=== PATIENT | female | born 1940 | race Caucasian/White ===

== ENCOUNTER 2016-12-29 12:45 | Day surgery (SDC) | payer MEDICARE ==
--- NOTE | 2016-12-25 13:34 | PCM.PNHBO ---
Subjective Pre Dive HBO Provider: Grace Vidales Treatment Pressure Order (JAZLYN): 2.00 Treatment Length Order Minutes: 90 Air Breaks: None Pre Treatment Exam Date of Pre Treatment Exam: Dec 25, 2016 Exam Time: 09:00 Brief Patient History This is dive # 32 of 40 Right Chest Wall Wound Ear Exam: Ear Drum Pearly Dowell Eye Exam: None Reported Nasal and Throat Exam: None Reported Respiratory Exam: Clear to Auscultation Neuro Exam: None Reported Dive Post Treatment Exam Date of Post Treatment Exam: Dec 25, 2016 Exam Time: 11:05 Ear Exam: Ear Drum Pearly Dowell Eye Exam: None Reported Nasal and Throat Exam: None Reported Neuro Exam: None Reported Lungs: Clear to Auscultation Plan Plan The patient will continue hyperbaric treatments. Will return 2016 for treatment #33 Kenyon Encarnacion MD Dec 25, 2016 13:34
[~2016-12-29] VITALS: Ht 160 cm; Wt 94.4 kg
[2016-12-29] VITALS (9 sets, daily range): BP systolic 114–164; BP diastolic 42–76; PULSE 56–70; RESP 11–16; O2SAT 95–98
[~2016-12-29 12:45] MED LIST: ACET325T51 PO; CARV25TA PO; ESCI10TA52 PO; ESOM40CA41 PO; HYDR12.55 PO; MELO-253 PO; Vancomycin Inj 1,500 MG in 0.9% Sodium Chloride 500 ML IV ONE
[2016-12-29] MEDS ORDERED: MetoCLOpramide 5 mg/mL 2 mL Inj ONE (12:46)
[2016-12-29] MEDS ORDERED: Ondansetron 2 mg/mL 2 mL Inj ONE (12:46)
[2016-12-29] MEDS ORDERED: fentaNYL-PF 50 mCg/mL 2 mL Inj ONE (12:46)
[2016-12-29] MEDS ORDERED: Dexamethasone 4 mg/mL Inj ONE (12:46)
[2016-12-29] MEDS ORDERED: Propofol 10,000 mCg/mL 20 mL Inj ONE (12:46)
[2016-12-29] MEDS ORDERED: Vancomycin 1,000mg/200 mL NS IV ONE (12:52)
[2016-12-29] MEDS: Lactated Ringer's 1,000 ML IV SCH ×2 (13:13→15:28)
[2016-12-29] MEDS ORDERED: Lactated Ringer's 500 ML IV PRN (15:44)
[2016-12-29] MEDS ORDERED: Lactated Ringer's 1,000 ML IV SCH (15:44)
[2016-12-29] MEDS ORDERED: Ondansetron 2 mg/mL 2 mL Inj IVPUSH PRN (15:45)
[2016-12-29] MEDS ORDERED: HYDROmorphone 1 mg/mL Inj IVPUSH PRN (15:45)
[2016-12-29] MEDS ORDERED: EPHEDrine Sulfate 50 mg/mL Inj IVPUSH PRN (15:45)
[2016-12-29] MEDS ORDERED: Labetalol 5 mg/mL 4 mL Inj IV PRN (15:45)
[2016-12-29] MEDS ORDERED: MetoCLOpramide 5 mg/mL 2 mL Inj IVPUSH PRN (15:45)
[2016-12-29] MEDS ORDERED: fentaNYL-PF 50 mCg/mL 2 mL Inj IVPUSH PRN (15:45)
[2016-12-29] MEDS ORDERED: hydrALAZINE 20 mg/mL Inj IVPUSH PRN (15:45)
[2016-12-29] MEDS ORDERED: Phenylephrine 10,000 mCg/mL Inj IVPUSH PRN (15:45)
[2016-12-29] MEDS ORDERED: Atropine 0.4 mg/mL Inj IVPUSH PRN (15:45)
--- NOTE | 2016-12-29 15:47 | PCM.HPANE ---
Patient Data Surgeon Admitting Provider: Attending Provider:Canelo Hopper MD Primary Care Physician:Lesly Alexander Other Provider:Jonathan Cid Anesthesia Reason for Visit Right Chest Wall Wound Ht/WT & BMI Height (Feet): 5 Height (Inches): 3 Weight (Kilograms): 93.300 Body Mass Index 36.00 Allergies Coded Allergies: Penicillins (Verified Allergy, Severe, HIVES, 07/24/16) Sulfa (Sulfonamide Antibiotics) (Verified Allergy, Severe, HIVES, 07/24/16 ) clarithromycin (Verified Allergy, Severe, HIVES, 07/24/16) clindamycin (Verified Allergy, Severe, Angioedema, 09/17/16) Rash Admitted for angioedema after taking the medication latex (Verified Allergy, Severe, rash, hives, 07/24/16) Past Anesthesia History Anesthesia History: Denies:: Anesthesia Reactions, Fam Anesthesia Reaction Diabetes History Hx Diabetes?: No (Hgb A1C 6.0- 09/2016) MRSA MRSA: No Medications Hypertension Medication: Yes Home Meds Incl Beta Brenda: Yes Active Scripts Carvedilol (Coreg)25 Mg Ljitcn62 Mg PO BID #30 TABLET Ref 0 Prov:Brown Millard DO 09/20/16 Reported Medications Escitalopram Oxalate 10 Mg Mieajq12 Mg PO DAILY #90 09/17/16 Acetaminophen 325 Mg Tablet1,300 Mg PO Q8H PRN For Pain Ref 0 06/24/16 Esomeprazole Magnesium (Nexium)40 Mg Capsule.dr40 Mg PO DAILY Ref 0 04/22/16 Meloxicam 15 Mg Gmewpg50 Mg PO DAILY 30 Days Ref 0 04/22/16 Hydrochlorothiazide 12.5 Mg Nwhstl46.5 Mg PO DAILY 30 Days Ref 0 04/22/16 History History of ENT Problems?: Yes HEENT History: Positive for:: Cataracts (bilateral) Sinus Problem (seasonal allergies ) Denies:: Dysphagia Hx of Heart Problems?: Yes Cardiovascular History: Positive for:: Hypertension Thrombophlebitis (past hx left upper extremity) Denies:: Congestive Heart Failure Heart Murmur Irregular Heartbeat Hx of Respiratory Problem?: No Respiratory History: Denies:: Asthma COPD Emphysema Oxygen Administration Pneumonia Tuberculosis Use of C-PAP Machine Hx Neurologic Problems?: No Neurological History: Denies:: CVA Headaches Multiple Sclerosis Parkinson's Disease Seizures Hx of GI Problems?: Yes Gastrointestinal History: Positive for:: Gastroesphageal Reflux Heartburn Denies:: Rectal Bleeding Hx of Problems?: No Genitourinary History: Denies:: Kidney Stones Urinary Tract Infection Female Hx: Positive for:: Problems with Breasts? (hx mastectomy, wound necrosis current admission problem) Denies:: Currently Skin History: Positive for:: History Skin Disorders? (chest wall wound current admission problem) Denies:: Pressure Ulcers Hx Musculoskeletal Problems?: Yes Musculoskeletal History: Positive for:: Joint Replacement (hx rt total knee) Osteoarthritis Hx of Psycho/Social Problems?: Yes Psycho Social History: Positive for:: Hx Depression Hx Surgeries?: Yes (RT TKA,POWERPORT,RT PARTIAL MASTECTOMY X2,HYST,CATARACT) Hx Any Other Health Problems?: Yes Other History: Positive for:: Cancer (right breast) Denies:: Endocrine Disease Hospitalization Thyroid Disease History Blood Transfusions: Denies:: Blood Transfusions Hx Diabetes: No (Hgb A1C 6.0- 09/2016) Hx Alcohol Use: NoHx Substance Use: No Smoking Status: Never Smoker Have You Smoked inLast 12 mo: No Stop/Bang S-Snoring: Do You Snore Loudly: No T-Tired: feel tired, fatigued: No O-Obsered: Observed not breath: No P-Blood Pressure: treated: Yes B- Body Mass Index > 35 kg/m2: No A- Age over 50: Yes N- Neck Large Circumference: No G- Gender Male: No MASHA Total Score: 2 Risk Assessment Category Category 1A: Patient has history of documented sleep apnea, and HAS NOT received any narcotic, sedative or anesthesia administration during this stay. Category 1B: Patient has history of documented sleep apnea, and HAS received any narcotic , sedative or anesthesia administration during this stay Category 2: Patient has SUSPECTED Obstructive Sleep Apnea, and HAS received any narcotic , sedative or anesthesia administration during this stay. Category 3: Patient has SUSPECTED Obstructive Sleep Apnea and HAS NOT received narcotic, sedative or anesthesia administration during this stay. Category 4: Outpatient in Procedural Areas with known sleep apnea or who screen positive for High Risk via the STOP/BANG questionnaire. Exam Exam General Appearance: Alert, Oriented X3, Cooperative, No Acute Distress HEENT/AIRWAY: MP 2, Neck Movement (FROM ), Mouth Opening (3 FBMO) Lungs: Clear to Auscultation, Normal Air Movement Heart: Exam Unremarkable, Regular Rate/Rhythm, No Murmurs/Rubs/Gallops Plan Impression Patient chart reviewed, patient interviewed and anesthestic plan with risks, benefits, and alternatives discussed, and informed consent obtained. NPO Status: 0930 SIPS WITH MEDS, LIGHT BREAKFAST OF YOGURT AT 0800 ASA Physical Status: ASA3 Severe Disease (breast cancer, h/o panctyopenia) Anesthetic Plan: GA Bene/Risks/Altern/Consents: Yes HP Complete Prior to Induction: Yes Ernie Haji MD Dec 29, 2016 13:01
[2016-12-29] MEDS ORDERED: Bupivacaine-MPF 0.5% 30 mL Inj INFILTRATE ONE (15:50)
[2016-12-29] MEDS ORDERED: HYDROcodone-APAP 5-325 mg Tablet PO PRN (16:45)
--- NOTE | 2016-12-29 16:47 | PCM.DISURG ---
Surgical Discharge Instruction Date of Service Dec 29, 2016 Dates of Hospitalization Date of Hospital Admission Providers Admitting Physician: Primary Care Physician: Lesly Alexander Attending Physician: Canelo Hopper MD Discharge Diagnosis Discharge Diagnosis Right chest wall wound, history of right breast cancer Diet Discharge Diet: No restrictions Activity Discharge Activity-General: No lifting >15 pounds for 2 weeks, Other (no lifting right arm above horizontal for 2 weeks) Dressing and Incisional Care Dressing Care: Remove outer dressing after 24 hrs Hygiene: May shower after (24 hours) Follow Up Plan Follow Up Plan With Dr. Hopper in the wound clinic in 3 weeks for suture removal Call your provider for: Fever (over 101.5), Discharge @ incision, pus discharge Canelo Hopper MD Dec 29, 2016 16:47
--- NOTE | 2016-12-29 16:54 | PCM.SURGOP ---
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 She was treated with hyperbaric oxygen, and the wound dimensions significantly improved , but she had a slow healing defect with radiation soft tissue necrosis. After she had developed an adequate bed of granulation tissue, after discussion of risks and benefits, she agreed to proceed with excision of her chest wall wound with layered closure. Findings: There was minimal undermining. The cavity was painted with methylene blue, and the entire cavity was excised. The diameter of the wound following excision was 8.0 x 3.5 x 1.5 cm. Procedure Details After smooth induction of general anesthesia, she was placed in the supine position, and was prepped and draped in wide sterile fashion. A procedural pause was performed according to the SCOAP checklist, and all were found to be in agreement. Using a cotton-tipped applicator, the wound cavity was painted with methylene blue diluted 50% with saline. An elliptical incision was then made through normal skin, oriented transversely. Dissection was carried down with electrocautery through the subcutaneous tissue to the chest wall. The entire wound cavity was excised without encountering the cavity. The excised tissue was oriented with suture, and sent for permanent pathology. The dimensions of the wound following excision were 8.0 x 3.5 x 1.5 cm. In the central base of the wound, there was the defect from prior pectoralis muscle resection. In order to achieve layered closure, skin flaps were raised over the underlying myofascial tissue, undermining the skin for at least 5 cm circumferentially. The pectoralis muscle was then grasped with Allis clamps, and it was elevated off the underlying chest wall, again completing circumferential dissection of at least 5 cm. Once this was achieved, the pectoralis muscle was able to be closed with difficulty with interrupted [id number]-[id number] 0 Vicryl sutures. Complete muscle closure was able to be achieved. The deep subcutaneous tissue was then closed using interrupted 2-0 Vicryl sutures. The skin was closed with interrupted 3-0 nylon vertical mattress sutures. Sterile dressings were applied. At the end of the case all needle and sponge counts were correct 2. The patient was awakened from anesthesia without difficulty, and taken to the recovery room in satisfactory condition, having tolerated the procedure well. Complications There were no periprocedural complications identified. Surgical Specimen Removed: Yes Specimen sent to Pathology: Yes Surgical Specimen description: Right chest wall tissue Anesthetic Plan: GA Grafts, Implants: None Output, Estimated Blood Loss: 30 Blood Administration during pulido: No Drains: None Catheters: None copies to: Lesly Alexander; Salomon Ortega Joshua D MD Dec 29, 2016 16:54
--- NOTE | 2016-12-29 17:11 | PCM.ANEP2 ---
Post Anesthesia Evaluation ASA/CMS Post Anesthesia VS in Patient's Normal Range?: Yes Resp Stable; Airway Patent?: Yes CV Function & Hydration Stable: Yes Mental Status Recovered?: Yes Pain control Satisfactory?: Yes N/V Control Satisfactory?: Yes Ernie Haji MD Dec 29, 2016 17:11
--- NOTE | 2016-12-29 17:11 | PCM.ANEP1 ---
Post Anesthesia Phase 1 PACU Phase 1 Assessment Date of Service: Dec 29, 2016 Vital Signs Vital Signs Date Time Temp Pulse Resp B/P Pulse Ox O2 Delivery O2 Flow Rate FiO2 12/29/16 13:25 36.0 56 16 156/59 95 Room Air Anesthetic Administered: GA Level of Alertness: Awake, talking MIRANDA's with Equal Strength: Yes Pain: No Nausea or Vomiting: No Oxygen Delivery: Simple Mask Lungs: Clear to Auscultation, Normal Air Movement Dermatome Level: Full Sensation Ernie Haji MD Dec 29, 2016 17:11
--- NOTE | 2016-12-31 16:10 | PATH ---
SURGICAL PATHOLOGY Attending Physician:Senia Mckinley CASE STATUS: Signed Out PATIENT NAME: OSVALDO PERRY PID: [id number] : 1940 DATE COLLECTED:12/29/2016 00:00 SPECIMEN: Soft Tissue Mass, Biopsy CLINICAL HISTORY: 1). RIGHT CHEST WALL TISSUE, SHORT STITCH SUPERIOR, LONG STITCH LATERAL FINAL DIAGNOSIS: 1.RIGHT CHEST WALL TISSUE: SKIN AND SUBCUTANEOUS TISSUE WITH ULCERATION, CHRONIC GRANULATION TISSUE, FIBROSIS, AND FOREIGN BODY REACTION CONSISTENT WITH PRIOR THERAPY. NO EVIDENCE OF MALIGNANCY. ICD10 CODE L98.491 GROSS DESCRIPTION: The specimen is received in formalin, labeled with the patient's name, sublabeled as right chest wall tissue and consists of an ellipse of skin and subcutaneous tissue (2.0 cm AP, 4.5 cm SI, 5.5 cm ML) oriented with 2 black sutures (short-superior, long-lateral). The skin is estrada-white with and contains a depressed flat smooth blue-green area (3.5 x 2.5 cm). This area is 1.6 cm from the superior, 1.5 cm from the inferior, 2.0 cm from the medial, and 0.7 cm from the lateral resection margins. The specimen is serially sectioned ML into 23 slices at the medial and lateral resection margins are slices #1 and #23 respectively. Ink code: purple-anterior; yellow-posterior; black-superior; orange-inferior; green-medial; blue-lateral. Section code: (A) slices #1-#4, slices are entirely submitted; (B) slices #5 and #6, slices are entirely submitted; (C) slice #8, entirely submitted; (D) size #10, entirely submitted, (E) slice #12, entirely submitted; (F) slice #14, entirely submitted; (G) slice #16, entirely submitted; (I) slice #18, entirely submitted; (I) slice #20, entirely submitted; (J) slice #22, entirely submitted; (K) slice #23, entirely submitted. 12/30/16 JM MICRO DESCRIPTION: See diagnosis. ICD-9 CODES: CPT CODES: 43725 Electronically Signed Out Laxmi Price MD [facility], [place] [address] Technical component performed at [facility], [address], [place], [address]
--- NOTE | 2017-01-04 12:53 | PCM.PNHBO ---
Subjective Pre Dive HBO Provider: Grace Vidales Treatment Pressure Order (JAZLYN): 2.00 Treatment Length Order Minutes: 90 Air Breaks: None Pre Treatment Exam Date of Pre Treatment Exam: Jan 04, 2017 Exam Time: 08:55 Brief Patient History This is dive # 34 of 40 Right Chest Wall Wound Ear Exam: Ear Drum Pearly Dowell Eye Exam: None Reported Nasal and Throat Exam: None Reported Respiratory Exam: Clear to Auscultation Neuro Exam: None Reported Dive Post Treatment Exam Date of Post Treatment Exam: Jan 04, 2017 Exam Time: 10:50 Ear Exam: Ear Drum Pearly Dowell Eye Exam: None Reported Nasal and Throat Exam: None Reported Neuro Exam: None Reported Lungs: Clear to Auscultation Plan Plan The patient will continue hyperbaric treatments. Will return January 05, 2017 for treatment #35 Kenyon Encarnacion MD Jan 04, 2017 12:52
[2017-03-09] MEDS ORDERED: HYDR25TA4 PO (15:01)
== END 2016-12-29 23:59 | disposition home or self-care (01) ==
LOC: SAS 12:45
PROVIDERS: ATTEND Student in an Organized Health Care Education/Training Program
DX: L98.491 Non-pressure chronic ulcer of skin of other sites limited to breakdown of skin (principal); S21.101D Unspecified open wound of right front wall of thorax without penetration into thoracic cavity, subsequent encounter; D48.5 Neoplasm of uncertain behavior of skin; I10 Essential (primary) hypertension; K21.9 Gastro-esophageal reflux disease without esophagitis; M19.90 Unspecified osteoarthritis, unspecified site; F32.9 Major depressive disorder, single episode, unspecified; X58.XXXD Exposure to other specified factors, subsequent encounter
CPT/HCPCS: 11406; 13101; J1170; J3010; J3370; J7040; J7120

== ENCOUNTER 2017-04-24 20:37 | Inpatient (IN) | payer MEDICARE ==
[~2017-04-24] VITALS: Ht 157.5 cm; Wt 90.8 kg
[~2017-04-24 20:37] MED LIST changes: +CYCL50CA3 PO; -HYDR12.55 PO; +HYDR25TA4 PO; -Vancomycin Inj 1,500 MG in 0.9% Sodium Chloride 500 ML IV ONE
[2017-04-24 20:46] VITALS: BP 135/69; PULSE 90; RESP 24; O2SAT 93
[2017-04-24 20:56] VITALS: BP 147/50; PULSE 75; RESP 18; O2SAT 88
[2017-04-24] MEDS ORDERED: ESOM40CA53 PO (21:07)
[2017-04-24] MEDS ORDERED: ONDA-54 PO (21:07)
[2017-04-24 21:24] LABS: BASOPHILS % (AUTO) 0.4 % (0-3); EOSINOPHILS % (AUTO) 1.8 % (0-5); MONOCYTES % (AUTO) 10.5 % (4-12); Mean Corpuscular Hemoglobin 32.3 pg (27.0-35.0); Mean Corpuscular Volume 94.4 fL (81-100); Platelet Count 178 bil/L (150-400)
--- NOTE | 2017-04-24 21:44 | DRSVH ---
PROCEDURE: X-RAY CHEST ONE VIEW, PORTABLE ([id number]) INDICATIONS: SHORTNESS OF BREATH TECHNIQUE: One view of the chest was acquired. COMPARISON: [facility], CR, XR CHEST 2VW, 10/13/2016, 16:13. [facility], CR, XR CHEST 1VW (PORTABLE), 09/18/2016, 10:11. FINDINGS: Surgical changes and devices: athletic monitor leads are seen over the chest. A Port-A-Cath reservoir from a left subclavian approach has the tip in the superior vena cava above the right atrium. Lungs and pleura: No pleural effusions or pneumothorax. No focal infiltrate. Mediastinum: Mediastinal contours appear normal. Heart size is normal. Bones and chest wall: No suspicious bony lesions. Overlying soft tissues appear unremarkable. IMPRESSION: Acute disease is seen in the chest. Cause of shortness of breath is not identified. Dictated by: Fredy Pollack M.D. on 04/24/2017 at 21:41 Approved by: Fredy Pollack M.D. on 04/24/2017 at 21:42
[2017-04-24 21:58] LABS: TROPONIN T 0.01 ug/L (0.0-0.011)
[2017-04-24 23:00] VITALS: BP 116/63; PULSE 65; RESP 20; O2SAT 95
--- NOTE | 2017-04-24 23:17 | ED.REPORT ---
HPI-General Illness Date of Service Apr 24, 2017 ED Provider: Leno Ortiz MD 76 y/o female with a hx of breast cancer (s/p chemotherapy completion a week ago ) and HTN presents to the ED complaining of persistent, moderate shortness of breath, onset a couple of days ago. Her sx are worse when she walks around. She denies chest pain, dysuria and increased urinary frequency. She also complains of hypertension. No other complaints at this time, including no headache, fever , chills, or unilateral weakness. Nursing Notes Stated Complaint: HIGH BLOOD PRESSURE,SOB Chief Complaint: General Complaint Nursing Notes Reviewed: Yes Allergies: Coded Allergies: Penicillins (Verified Allergy, Severe, HIVES, 07/24/16) Sulfa (Sulfonamide Antibiotics) (Verified Allergy, Severe, HIVES, 07/24/16 ) clarithromycin (Verified Allergy, Severe, HIVES, 07/24/16) clindamycin (Verified Allergy, Severe, Angioedema, 09/17/16) Rash Admitted for angioedema after taking the medication latex (Verified Allergy, Severe, rash, hives, 07/24/16) Scheduled Carvedilol (Coreg) 25 Mg Tablet 25 MG PO BID Cyclophosphamide (Cyclophosphamide) 50 Mg Capsule 100 MG PO DAILY Escitalopram Oxalate (Escitalopram Oxalate) 10 Mg Tablet 10 MG PO DAILY Esomeprazole Magnesium (Nexium) 40 Mg Capsule.dr 40 MG PO DAILY Esomeprazole Magnesium (Esomeprazole Magnesium) 40 Mg Capsule.dr 40 MG PO DAILY Hydrochlorothiazide (Hydrochlorothiazide) 25 Mg Tablet 25 MG PO DAILY Meloxicam (Meloxicam) 15 Mg Tablet 15 MG PO DAILY Ondansetron (Ondansetron) 8 Mg Tablet 8 MG PO q12 hours Scheduled PRN Acetaminophen (Acetaminophen) 325 Mg Tablet 1,300 MG PO Q8H PRN PRN For Pain General Time Seen by MD: 21:25 Chief Complaint Other (shortness of breath) Hx Obtained From: Patient Arrived By: Walk-in Sudden in Onset?: Yes Onset Occurred: 2 days ago Symptom Duration: Since onset Severity: Current: No pain currently Severity: Maximum: No pain Recent Healthcare: No recent doctor visit Past Medical History Past Medical History Cataracts Hypertension Hyperlipidemia GERD Hx colon polyps Depression R breast CA s/p Partial R mastectomy Past Surgical History Mastectomy [place] Hysterectomy Cataract R knee Smoking History Never Smoker Ambulatory Status Independent Review of Systems Reports: high blood pressure Full Review of Systems Respiratory: Reports: Shortness of breath Cardiovascular: Denies: Chest pain Female: Denies: Dysuria, Urinary frequency Complete sys rev & neg: except as marked. Physical Exam Nursing note and vitals reviewed. Constitutional: Well-developed, well-nourished. Not diaphoretic. Head: Normocephalic and atraumatic. Mouth/Throat: Oropharynx is clear and moist. No oropharyngeal exudate. Eyes: EOM are normal. Pupils are equal, round, and reactive to light. Neck: Supple, no tracheal deviation. Cardiovascular: Normal rate, regular rhythm. Equal and intact distal pulses throughout. Pulmonary/Chest: Effort normal and breath sounds normal. No respiratory distress. Abdominal: Soft. No distension. There is no tenderness, rebound, or guarding. Bowel sounds present. Musculoskeletal: Range of motion grossly intact, moving all extremities. No edema or tenderness appreciated. Neurological: AOx3. Grossly nonfocal exam. Strength and sensation intact and equal to bilateral upper and lower extremities. Skin: Warm and dry, no rashes or pallor appreciated. Psychiatric: Appropriate mood and affect. Behavior appears normal. Vital Signs Vital Signs Date Time Temp Pulse Resp B/P Pulse Ox O2 Delivery O2 Flow Rate FiO2 04/24/17 23:00 65 20 116/63 95 Nasal Cannula 2 04/24/17 20:56 75 18 147/50 88 Room Air 04/24/17 20:46 37.8 90 24 135/69 93 Room Air Interpretation & Diagnostics Lab Results Interpretation Result Diagram: 04/26/17 0400 04/26/17 0400 Test 04/24/17 21:15 04/24/17 23:59 Pro-B-Type Natriuretic Peptide 359.5pg/mL (0-738) Hold Sanchez Top Tube Received (Received) Urine Color Yellow (YELLOW) Urine Appearance Clear (CLEAR,HAZY) Urine pH 6.0 (5.0-8.0) Urine Specific [place] <1.005 (1.003-1.035) Urine Protein Negativemg/dL (NEG,TRACE) Urine Glucose (UA) Negativemg/dL (NEGATIVE) Urine Ketones Negativemg/dL (NEGATIVE) Urine Occult Blood Negative (NEGATIVE) Urine Nitrite Negative (NEGATIVE) Urine Bilirubin Negative (NEGATIVE) Urine Urobilinogen Normalmg/dL (NORMAL) Urine Leukocyte Esterase Small (NEGATIVE) Urine RBC 0-2/hpf (0-2) Urine WBC 0-5/hpf (0-5) Urine Epithelial Cells Few/hpf (NONE-MOD) Urine Crystals None seen (NONE SEEN) Urine Bacteria Few/hpf (NONE-FEW) Urine Hyaline Casts None/lpf (NONE) Urine Granular Casts None seen (NONE SEEN) Urine Waxy Casts None seen (NONE SEEN) Urine Red Blood Cell Casts None seen (NONE SEEN) Urine White Blood Cell Casts None seen (NONE SEEN) Urine Mucus None seen (None Seen) Urine Trichomonas None seen (NONE SEEN) Urine Yeast None (NONE SEEN) Urinalysis Comment None Urine Culture Reflexed Indicated ECG Interpretation ECG Interpretation: Normal sinus rhythm. Rate 72. Prolonged [place] interval Probable left atrial enlargement RBBB Old inferior infarct Acute lateral leads Time: 21:19 Interpreted by: ED physician X-Ray Chest Interpretation Chest Xray Interpretation: IMPRESSION: Acute disease is seen in the chest. Cause of shortness of breath is not identified. Dictated by: Fredy Pollack M.D. on 04/24/2017 at 21:41 Approved by: Fredy Pollack M.D. on 04/24/2017 at 21:42 View: Portable, 1 view Interpretation / Wet Read by: Interpret - Radiologist Re-Eval/Medical Decision Med Decision/Clinical Course 76-year-old female with a history of breast cancer including recent treatment with chemotherapy completed last week presented to the ED for evaluation of several days of progressive dyspnea with exertion. No chest pain. Obvious concern for pulmonary embolus given patient's history of cancer and new oxygen requirement here in the ED. Levels in the 80s without oxygen and she has not had this before. EKG as per above. I do not suspect any acute ischemic changes at this time. CTA of the chest demonstrates no evidence of PE, however does have groundglass opacities in bilateral upper lobes. She does not have any infectious symptoms, including no fever at this time. Unclear etiology for the patient's symptoms, however given her new oxygen requirement, plan admission for further evaluation and management. Patient agreeable to the plan as stated, no further questions. Source of Hx: Old records Time of Eval: 23:54 Re-Evaluation/Progress Note: Rechecked pt. Discussed lab results, imaging results, diagnosis and plan to admit. Pt understands and agrees with the plan for admission. All questions addressed. Counseled Regarding: Diagnosis, Lab results, Need for admission Discharge & Departure Primary Impression: Dyspnea Dyspnea type: shortness of breath Qualified Code: R06.02 - Shortness of breath Additional Impression: Hypoxemia Disposition: ADMITTED TO HOSPITAL Discharge Condition All VS Reviewed: Yes Condition: Stable Referrals: Lesly Alexander (PCP) Scribe Attestation Portions of this note were transcribed by Khris Chavez. I,, personally performed the history, physical exam and medical decision-making;I reviewed and confirmed the accuracy of the information in the transcribed note. Signed by Angus Hoover. 04/25/17 00:14 copies to: Lesly lAexander William B MD Apr 24, 2017 23:17 Khris Chavez Apr 24, 2017 23:33
[2017-04-25] VITALS (9 sets, daily range): BP systolic 128–164; BP diastolic 66–78; PULSE 60–80; RESP 16–20; O2SAT 94–97
[2017-04-25 00:18] LABS: APPEARANCE,URINE CLEAR (CLEAR,HAZY); COLOR,URINE YELLOW (YELLOW); OCCULT BLOOD,URINE NEGATIVE (NEGATIVE); UROBILINOGEN,URINE NORMAL (NORMAL)
[2017-04-25] MEDS ORDERED: Alum-Mag Hydrox-Simeth 30 mL Suspension PO PRN (00:45)
[2017-04-25] MEDS ORDERED: Polyethylene Glycol (PEG) 17 Gm Powder PO PRN (00:45)
[2017-04-25] MEDS ORDERED: Ondansetron 2 mg/mL 2 mL Inj IVPUSH PRN (00:45)
--- NOTE | 2017-04-25 02:25 | PCM.HPMED ---
Subjective Date of Service Apr 25, 2017 Primary Provider: Admitting Physician: Melisa Moreno MD Primary Care Physician: Lesly Alexander Attending Physician: Melisa Moreno MD Admit Status: From the Emergency Department, Full Admit, [facility] Telemetry, Remote Telemetry Chief Complaint: Increasing dyspnea and hypoxia History of Present Illness: This is a 76-year-old female with a history of breast carcinoma to his recurrent. Initially diagnosed in 2005 and was found to have right-sided invasive carcinoma recurrence 04/28/2016. She was recently receiving adjuvant chemotherapy with CMF. She completed her course about a week ago. At approximately 4 days ago has noted progressive shortness of breath with walking. She denies any chest pain. Denies any fevers chills. She does not that her blood pressure has recently been a bit higher. And she presented to the emergency room today for further evaluation. Her CTA of chest PE protocol revealed pulmonary emboli but extensive lung groundglass opacities mostly in the bilateral upper lobes was seen. He denies any cough. EKG reveals sinus at a rate of 72 with prolonged UT interval of 232. Also right bundle branch block pattern is present. With Q waves in II,III, aVF. She denies any problem with low oxygen levels when checked in the past. However she her room air saturations are 88-93%. She is on 2 L nasal cannula at 95%. Review of Systems: All other review of systems are reviewed and are negative except for as in history of present illness. Allergies Coded Allergies: Penicillins (Verified Allergy, Severe, HIVES, 07/24/16) Sulfa (Sulfonamide Antibiotics) (Verified Allergy, Severe, HIVES, 07/24/16 ) clarithromycin (Verified Allergy, Severe, HIVES, 07/24/16) clindamycin (Verified Allergy, Severe, Angioedema, 09/17/16) Rash Admitted for angioedema after taking the medication latex (Verified Allergy, Severe, rash, hives, 07/24/16) Home Medications Scheduled Carvedilol (Coreg) 25 Mg Tablet 25 MG PO BID Cyclophosphamide (Cyclophosphamide) 50 Mg Capsule 100 MG PO DAILY Escitalopram Oxalate (Escitalopram Oxalate) 10 Mg Tablet 10 MG PO DAILY Esomeprazole Magnesium (Nexium) 40 Mg Capsule.dr 40 MG PO DAILY Esomeprazole Magnesium (Esomeprazole Magnesium) 40 Mg Capsule.dr 40 MG PO DAILY Hydrochlorothiazide (Hydrochlorothiazide) 25 Mg Tablet 25 MG PO DAILY Meloxicam (Meloxicam) 15 Mg Tablet 15 MG PO DAILY Ondansetron (Ondansetron) 8 Mg Tablet 8 MG PO q12 hours Scheduled PRN Acetaminophen (Acetaminophen) 325 Mg Tablet 1,300 MG PO Q8H PRN PRN For Pain PMH Past Medical History Past Medical History Cataracts Hypertension Hyperlipidemia GERD Hx colon polyps Depression R breast CA s/p Partial R mastectomy Past Surgical History Mastectomy Port Hysterectomy Cataract R knee Social History Hx Alcohol Use: No Hx Substance Use: No Smoking Status: Never Smoker Living Arrangement: with Family Exam Vital Signs Vital Sign - Last Date Time Temp Pulse Resp B/P Pulse Ox O2 Delivery O2 Flow Rate FiO2 04/25/17 01:52 36.9 60 16 131/74 97 Room Air 04/24/17 23:00 2 Exam Constitutional: Elderly female in no acute distress Head: Normocephalic atraumatic Mouth: No lesions Neck: No adenopathy Chest: Clear to auscultation Cor: Regular rate and rhythm S1-S2 without murmur Abdomen: Soft nontender bowel sounds present Extremities: No pedal edema Skin: No rashes Psych: Mood and affect are appropriate Neuro: Alert and oriented 3, motor strength is intact bilaterally Lab and Diagnostics Labs Laboratory Tests 72 Hours Test 04/24/17 21:15 04/24/17 23:59 04/25/17 01:50 White Blood Count 5.6th/mm3 (3.8-10.1) Red Blood Count 3.41mil/mm3 (3.90-5.20) Hemoglobin 11.0g/dL (12.0-15.6) Hematocrit 32.2% (35.0-46.0) Mean Corpuscular Volume 94.4fL (81-100) Mean Corpuscular Hemoglobin 32.3pg (27.0-35.0) Mean Corpuscular Hemoglobin Concent 34.2% (32.0-37.0) Red Cell Distribution Width 17.0% (12.3-15.4) Platelet Count 178bil/L (150-400) Neutrophils (%) (Auto) 82.0% (40-74) Lymphocytes (%) (Auto) 5.1% (14-46) Monocytes (%) (Auto) 10.5% (4-12) Eosinophils (%) (Auto) 1.8% (0-5) Basophils (%) (Auto) 0.4% (0-3) Sodium Level 133mEq/L (134-144) Potassium Level 3.9mEq/L (3.5-5.2) Chloride Level 93mEq/L (97-108) Carbon Dioxide Level 22mmol/L (18-29) Blood Urea Nitrogen 25mg/dL (8-27) Creatinine 0.88mg/dL (0.57-1.00) Estimat Glomerular Filtration Rate 89mL/min (>59) Glucose Level 139mg/dL (60-99) Calcium Level 9.7mg/dL (8.5-10.1) Total Bilirubin 0.4mg/dL (0.0-1.2) Aspartate Amino Transf (AST/SGOT) 27U/L (0-50) Alanine Aminotransferase (ALT/SGPT) 20U/L (0-32) Alkaline Phosphatase 89U/L (25-165) Troponin T 0.010ug/L (0.0-0.011) Pro-B-Type Natriuretic Peptide 359.5pg/mL (0-738) Total Protein 6.8g/dL (6.4-8.4) Albumin 4.0g/dL (3.4-5.0) Hold Sanchez Top Tube Received (Received) Urine Color Yellow (YELLOW) Urine Appearance Clear (CLEAR,HAZY) Urine pH 6.0 (5.0-8.0) Urine Specific [place] <1.005 (1.003-1.035) Urine Protein Negativemg/dL (NEG,TRACE) Urine Glucose (UA) Negativemg/dL (NEGATIVE) Urine Ketones Negativemg/dL (NEGATIVE) Urine Occult Blood Negative (NEGATIVE) Urine Nitrite Negative (NEGATIVE) Urine Bilirubin Negative (NEGATIVE) Urine Urobilinogen Normalmg/dL (NORMAL) Urine Leukocyte Esterase Small (NEGATIVE) Urine RBC 0-2/hpf (0-2) Urine WBC 0-5/hpf (0-5) Urine Epithelial Cells Few/hpf (NONE-MOD) Urine Crystals None seen (NONE SEEN) Urine Bacteria Few/hpf (NONE-FEW) Urine Hyaline Casts None/lpf (NONE) Urine Granular Casts None seen (NONE SEEN) Urine Waxy Casts None seen (NONE SEEN) Urine Red Blood Cell Casts None seen (NONE SEEN) Urine White Blood Cell Casts None seen (NONE SEEN) Urine Mucus None seen (None Seen) Urine Trichomonas None seen (NONE SEEN) Urine Yeast None (NONE SEEN) Urinalysis Comment None Urine Culture Reflexed Indicated Result Diagram: 04/24/17211404/24/172114 Assessment & Plan #Dyspnea with hypoxia, acute, present on admission -No PE seen on CT of chest but extensive groundglass opacities particularly in the upper lobes -We will check echocardiogram and serial troponins -Recommend pulmonary consultation in the a.m. -No signs or symptoms consistent with an infectious process -Question whether this is related to recent chemotherapy as potentially could be side effect of Cytoxan and/or methotrexate. #Hypertension, chronic -Continue current medication regimen #History of recurrent right-sided breast carcinoma -Followed by Dr. Ortega #DVT prophylaxis -We will use subcutaneous prophylactic Lovenox #CODE STATUS -Full code VTE Prophylaxis: Sub-Q Enoxaparin Resuscitation Status: CPR: Attempt Resuscitation Time spent 60 minutes Melisa Moreno MD Apr 25, 2017 02:25
[2017-04-25 02:52] LABS: TROPONIN T 0.01 ug/L (0.0-0.011)
--- NOTE | 2017-04-25 06:35 | NUR ---
Admit Admitted to 1027 from ED via stretcher. Able to ambulate on arrival with steady gait noted. c/o PERSON with RA SpO2 noted 90-92% at rest. 2L NC applied with SpO2 mid 90's at rest and no c/o SOB. Tele SR w/o c/o CP or discomfort. Tolerating PO intake w/o c/o n/v. Voiding without any noted issues and last reported BM on 04/24. Left chest portacath intact with NS @ TKO. Denies pain or discomfort. Personal belongings at bedside per patient request. Oriented to call light use with return demonstration.
--- NOTE | 2017-04-25 07:50 | DRSVH ---
PROCEDURE: CT ANGIO CHEST PULMONARY EMBOLISM ([id number]) INDICATIONS: cancer, dyspnea, increased O2 req TECHNIQUE: After the administration of intravenous contrast, 2 mm thick sections acquired from the pulmonary api carolyn to the posterior costophrenic angles. 3-dimensional maximum intensity projection (MIP) coronal a nd sagittal reformats were then acquired through the thorax. For radiation dose reduction, the follo wing was used: automated exposure control, adjustment of mA and/or kV according to patient size. COMPARISON: None. FINDINGS: Image quality: Excellent. Pulmonary arteries: Pulmonary arteries are normal in size, and demonstrate no intraluminal filling d efects to suggest central pulmonary embolism. Lungs and pleura: The lungs demonstrate patchy and confluent areas of groundglass like opacity most p rominent in the upper lobes bilaterally. Mediastinum: Heart size is normal, without pericardial effusion. There are a significant number of sub-centimeter in borderline centimeter-sized lymph nodes within the mediastinum and hilar regions. Thoracic aorta is normal in caliber and enhancement. Esophagus is normal in caliber, without hiatal hernia. Bones and chest wall: No suspicious bony lesions. Ribs and thoracic spine appear intact throughout. Thyroid gland is unremarkable. No axillary or supraclavicular adenopathy. Right mastectomy is not ed. There is soft tissue thickening along the anterior right chest wall. Abdomen: Visualized upper abdominal solid organs appear normal in the early arterial phase of enhanc ement. IMPRESSION: 1. There is bilateral patchy confluent groundglass like opacities within the lungs bilaterally partic ularly the upper lobes. Numerous mediastinal lymph nodes are also present. Findings are suggestive of infection or inflammation. 2. No pulmonary embolism. 3. Soft tissue thickening along the right anterior chest wall subcutaneous tissues. This could be pos tsurgical related to mastectomy. However, recommend correlation to surgical time line and further fol lowup as indicated, as mass lesion other etiologies cannot be excluded. Dictated by: Sujata Campuzano M.D. on 04/25/2017 at 7:41 Approved by: Sujata Campuzano M.D. on 04/25/2017 at 7:47
[2017-04-25] MEDS: Sodium Chloride LOK Flush 10 mL Syringe IVFLUSH SCH ×2 (08:30→16:00)
[2017-04-25] MEDS: levoFLOXacin Inj 750 MG in IV Premix 1 EACH IV SCH (11:31)
[2017-04-25] MEDS: 0.9% Sodium Chloride 250 ML IV SCH (11:31)
[2017-04-25] MEDS ORDERED: HepLOK Flush 100 unit/mL 5 mL Inj IVFLUSH PRN (11:35)
[2017-04-25] MEDS ORDERED: Sodium Chloride LOK Flush 10 mL Syringe IVFLUSH PRN ×2 (11:35)
--- NOTE | 2017-04-25 12:14 | DRSVH ---
[facility] [address] [place] [address] Echocardiogram Report Name: OSVALDO PERRY RStudy Julián e: 04/25/2017 Height: 62 in Hospital Exam Location: [facility] Weight: 200 lb Gender: Female BSA: 1.9 m2 : 1940 Age: 76 yrs BP: 164/66 mmHg Reason For Study: HYPOXIA Ordering Physician: Juan MoraistPerformed By: Art Rodriguez Referring Physician: Lesly Alexander Interpretation Summary 1. Normal left ventricular size, wall thickness and systolic function with an estimated EF of 60-65% 2. Normal right ventricular size and systolic function. The estimated RVSP is 38 mm Hg. Estimated right atrial pressure is low. 3. Findings most consistent with mild aortic stenosis. no insufficiency. No old study for comparison Procedure: A two-dimensional transthoracic echocardiogram with color flow and Doppler was performed. The study quality was technically adequate. There is no prior echocardiogram noted for this patient. The patient was in normal sinus rhythm during the exam. Left Ventricle: The left ventricle is normal in size. There is normal left ventricular wall thickness. The ejection fraction is estimated to be 60-65%. Septal motion is consistent with conduction abnormality. No obvious focal wall motion abnormalities. Right Ventricle: The right ventricle is normal in size and function. Atria: The left atrium is mildly dilated. Right atrial size is normal. No color doppler evidence for an ASD. Mitral Valve: The mitral valve leaflets appear mildly thickened, but open well. There is mild mitral annular calcification. mean gradient 3.2. There is trace mitral regurgitation. Aortic Valve: The aortic valve is trileaflet. The aortic valve is mildly calcified. There is discrete nodular thickening of the non- coronary cusp. The peak aortic velocity is 2.55 m/sec. The aortic valve mean gradient is 17.4 mmHg. The calculated aortic valve area is 1.8 cm2. There is mild aortic stenosis. No aortic regurgitation is present. Tricuspid Valve: The tricuspid valve leaflets are thin and pliable. There is trace tricuspid regurgitation. The right ventricular systolic pressure is estimated at 38 mmHg assuming a right atrial pressure of 3 mm Hg. Pulmonic Valve: The pulmonic valve is normal in structure and function. There is trace pulmonic regurgitation. Great Vessels: The aortic root is normal size. The dimensions of the ascending aorta are normal. The IVC is of normal diameter and collapses greater than 50% with a sniff. This suggests a low right atrial pressure of 3 mm Hg. Pericardium/ Pleura There is no pericardial effusion. There is no pleural effusion. MMode/2D Measurements & Calculations LVIDd: 5.0 cm LA dimension: 4.2 cm RA long axis LVOT diam: 2.1 cm LVIDs: 3.0 cm Ao root diam FS: 39.4 % LA A2 area: 19.2 cm RA area EPSS: 0.20 cm LA A4 area: 21.4 cm Aortic Jxn: 2.1 cm IVSd: 1.0 cm LA length (vol) : 16.5 cm asc Aorta Diam LVPWd: 1.1 cm RA vol LA vol: 69.3 ml : 48.5 ml Ao Arch Diam (Prox LA vol index RA Trans): 2.2 cm : 25.4 mm2 IVC diam: 1.6 cm LV smith. diameter/BSA LV sys. diameter/BSA (cm/m^2): 2.6 (cm/m^2): 1.6 Doppler Measurements & Calculations Ao V2 max: 255.9 cm/secMV E max jad MV E/A: 0.78 TR max jad Ao max P.2 mmHg : 99.5 cm/sec Med Peak E' Jad : 295.3 cm/sec Ao mean P.4 mmHg MV A max jad TR max PG LVOT Max Jad : 128.1 cm/sec E/E' med: 21.7 : 34.9 mmHg : 125.5 cm/sec PA V2 max MVA(VTI): 3.7 cm2 : 101.3 cm/sec KAILYN(I,D): 1.8 cm PA mean PG sev ratio: 0.51 PA Accel Time : 0.13 sec MV V2 mean: 86.0 cm/secAo V2 mean LV V1 max PG PA V2 mean MV mean P.2 mmHg : 203.3 cm/sec : 73.9 cm/sec MV V2 VTI: 29.2 cm Ao V2 VTI: 58.6 cmLV V1 VTI PA pr(Accel) MV dec time: 0.15 sec : 29.9 cm : 22.5 mmHg KAILYN(V,D): 1.8 cm2 KAILYN indexed to BSA (cm^2/m^2): 0.97 Reading Physician:12:13 PM
[2017-04-25] MEDS: predniSONE 20 mg Tablet PO SCH (13:27)
--- NOTE | 2017-04-25 18:20 | NUR ---
dyspnea with exertion patient denies SOB at rest today but notes PERSON when up to the restroom. patient stated that she notices it once she get back to bed or chair after getting u to the bathroom. denies N/V, SOB at rest, or any pain/discomfort. continue to monitor.
[2017-04-26] VITALS (9 sets, daily range): BP systolic 126–179; BP diastolic 57–78; PULSE 60–72; RESP 16–20; O2SAT 94–97
[2017-04-26] MEDS: Sodium Chloride LOK Flush 10 mL Syringe IVFLUSH SCH ×4 (00:26→22:00)
[2017-04-26 04:27] LABS: BASOPHILS % (AUTO) 0 % (0-3); EOSINOPHILS % (AUTO) 0 % (0-5); MONOCYTES % (AUTO) 9.5 % (4-12); Mean Corpuscular Hemoglobin 31.9 pg (27.0-35.0); Mean Corpuscular Volume 94.1 fL (81-100); NEUTROPHILS % (AUTO) 78.4 % (40-74); Platelet Count 184 bil/L (150-400)
[2017-04-26] MEDS: predniSONE 20 mg Tablet PO SCH (09:06)
[2017-04-26] MEDS: levoFLOXacin Inj 750 MG in IV Premix 1 EACH IV SCH (10:15)
[2017-04-26] MEDS: 0.9% Sodium Chloride 250 ML IV SCH (11:31)
--- NOTE | 2017-04-26 13:59 | PCM.PNMED ---
Subjective Date of Service Apr 26, 2017 Subjective Patient seen and examined today. She says her breathing is much better today. Vitals stable. Exam Vital Signs Vital Sign - Last Date Time Temp Pulse Resp B/P Pulse Ox O2 Delivery O2 Flow Rate FiO2 04/26/17 12:40 36.8 72 18 164/78 96 Room Air 04/26/17 08:21 2.00 Intake and Output 04/25/17 04/25/17 04/26/17 Cumulative From/Thru 15:00 23:00 07:00 04/24/17 20:46 - 04/26/17 06:27 Intake Total 1131 ml 561 ml 1892 ml Output Total 770 ml 990 ml Balance 361 ml 561 ml 902 ml Intake Oral 840 ml 450 ml 1490 ml IV Total 291 ml 111 ml 402 ml Output Urine Total 770 ml 970 ml Stool Total 20 ml # Voids 3 3 # Bowel Movements 0 0 Exam Constitutional: Elderly female in no acute distress Head: Normocephalic atraumatic Mouth: No lesions Neck: No adenopathy Chest: Clear to auscultation Cor: Regular rate and rhythm S1-S2 without murmur Abdomen: Soft nontender bowel sounds present Extremities: No pedal edema Skin: No rashes Psych: Mood and affect are appropriate Neuro: Alert and oriented 3, motor strength is intact bilaterally Lab and Diagnostics Result Diagram: 04/26/170 04/26/17 0400 Assessment & Plan #Dyspnea with hypoxia, acute, present on admission -No PE seen on CT of chest but extensive groundglass opacities particularly in the upper lobes - interstitial pneumonia vs chemotherapy induced acute lung injury -Echo - normal EF -Pulm consulted, patient started on steriods and abx #Hypertension, chronic -Continue current medication regimen #History of recurrent right-sided breast carcinoma -Followed by Dr. Ortega #DVT prophylaxis -We will use subcutaneous prophylactic Lovenox #CODE STATUS -Full code VTE Prophylaxis: Sub-Q Enoxaparin Resuscitation Status: CPR: Attempt Resuscitation Time spent 35 mins Alex Campo MD Apr 26, 2017 13:58
--- NOTE | 2017-04-26 18:07 | NUR ---
Respiratory Status patient reports improvement with her breathing today. able to ween off oxygen. at rest patient maintaining O2 sat at mid 90's. patient walked in petit x3 today. last walk was on RA. walking O2 sat maintained between 92-94%. on 3rd lap patient reported some mild SOB with increased resp rate. O2 sat still maintained at 93%. encouraged increased mobility, DB&C exercises while awake. continue to monitor.
--- NOTE | 2017-04-26 18:13 | PROG NOTE ---
[address] [address] PROGRESS NOTE PATIENT: OSVALDO PERRY : 1940 MR#: [id number] ADMIT: 04/25/2017 JOB ID: [id number] DATE: 04/26/2017 PROBLEM LIST: 1. Dyspnea. 2. Abnormal chest x-ray. SUBJECTIVE: Feeling quite a bit better today. Essentially no cough. Breathing more comfortably. Has walked two or three laps of the nursing station today. O2 sats running in the mid's 90s on room air. OBJECTIVE: Temperature 36.8. Pulse 60, respiratory rate 18, blood pressure 164/78, O2 sat on room air at rest is 96%. General appearance: No acute distress. Animated. Speaking easily. Chest has good breath sounds bilaterally. A few crackles at the left base posteriorly. Remainder of lung valdivia are clear. No use of accessory muscles. Heart: Regular rhythm. Heart tones normal. Abdomen soft and nontender. Extremities without edema. ASSESSMENT: Dyspnea. Marked improvement. This is with discontinuation of methotrexate and steroids. Would continue the steroids a few more days and then discontinue them and follow her course. Will probably need a repeat high-resolution CT of her chest in 10-14 days If her symptoms remain resolved. If she has a recrudescence, then may need earlier reimaging. PLAN: 1. Continue prednisone 60 mg a day for maybe five more days. 2. Continue to withhold methotrexate, although my understanding is the methotrexate course is completed.
[2017-04-27 04:48] VITALS: BP 154/60; PULSE 61; RESP 16; O2SAT 97
[2017-04-27 05:45] LABS: BASOPHILS % (AUTO) 0.1 % (0-3); EOSINOPHILS % (AUTO) 0.1 % (0-5); MONOCYTES % (AUTO) 11.1 % (4-12); Mean Corpuscular Hemoglobin 31.8 pg (27.0-35.0); Mean Corpuscular Volume 92.1 fL (81-100); NEUTROPHILS % (AUTO) 76.2 % (40-74); Platelet Count 246 bil/L (150-400)
--- NOTE | 2017-04-27 06:19 | NUR ---
Uneventful Night: Pt had an uneventful night, no c/o pain, chest pain or SOB. Pt on RA with cont pulse ox this shift, states she's feeling much better. Pt slept off/on throughout the night, pleasant and cooperative with care.
--- NOTE | 2017-04-27 08:03 | PCM.DIMED ---
Discharge Instructions Date of Service Apr 27, 2017 Dates of Hospitalization Apr 25, 2017 at 00:30 Discharge Diagnosis Discharge Diagnosis Dyspnea likely 2/2 chemotherapy induced lung injury Diet Discharge Diet: Heart Healthy Activity Discharge Activity: No restrictions Call your provider Call your provider for: Fever or Chills, Shortness of breath, Chest pain Patient Instructions Patient Instructions Need a repeat high resolution CT in 2 weeks. Follow-up Provider: Lesly Alexander Follow-up with PCP in: 1 week Provider: Milena Serrano MD Follow-up in: 2 weeks Alex Campo MD Apr 27, 2017 07:59
[2017-04-27] MEDS ORDERED: PRED-508 PO (08:06)
[2017-04-27 08:20] VITALS: BP 156/72; PULSE 63; RESP 18; O2SAT 95
[2017-04-27] MEDS: Sodium Chloride LOK Flush 10 mL Syringe IVFLUSH SCH ×2 (08:30→16:30)
[2017-04-27] MEDS: predniSONE 20 mg Tablet PO SCH (09:00)
--- NOTE | 2017-04-27 09:17 | NUR ---
[facility] signed
[2017-04-27 10:41] VITALS: PULSE 64
[2017-04-27] MEDS: levoFLOXacin Inj 750 MG in IV Premix 1 EACH IV SCH (10:42)
--- NOTE | 2017-04-27 11:11 | PCM.DC.MED ---
Discharge Summary Date of Service Apr 27, 2017 Dates of Hospitalization Date of Hospital Admission Apr 25, 2017 at 00:30 Date of Discharge: Apr 27, 2017 Providers: Admitting Physician: Melisa Moreno MD Primary Care Physician: Lesly Alexander Attending Physician: Eduard Zarate MD Diagnosis at Time of Discharge Diagnosis at Time of Discharge Dyspnea likely 2/2 chemotherapy induced lung injury Consultations Pulmonology Brief History This is a 76-year-old female with a history of breast carcinoma to his recurrent. Initially diagnosed in 2005 and was found to have right-sided invasive carcinoma recurrence 04/28/2016. She was recently receiving adjuvant chemotherapy with CMF. She completed her course about a week ago. At approximately 4 days ago has noted progressive shortness of breath with walking. She denies any chest pain. Denies any fevers chills. She does not that her blood pressure has recently been a bit higher. And she presented to the emergency room today for further evaluation. Her CTA of chest PE protocol revealed pulmonary emboli but extensive lung groundglass opacities mostly in the bilateral upper lobes was seen. He denies any cough. EKG reveals sinus at a rate of 72 with prolonged FL interval of 232. Also right bundle branch block pattern is present. With Q waves in II,III, aVF. She denies any problem with low oxygen levels when checked in the past. However she her room air saturations are 88-93%. She is on 2 L nasal cannula at 95%. Hospital Course #Dyspnea with hypoxia, acute, present on admission -No PE seen on CT of chest but extensive groundglass opacities particularly in the upper lobes -likely chemotherapy induced acute lung injury -Echo - normal EF -Pulm consulted, patient was on steriods and abx - no signs of infection, condition improved with steroids, to continue on dc - oxygen with walk : 93% - patient to follow up with Dr. ann outpatient for CT #Hypertension, chronic -Continue current medication regimen #History of recurrent right-sided breast carcinoma -Followed by Dr. Ortega #DVT prophylaxis -We will use subcutaneous prophylactic Lovenox #CODE STATUS -Full code Exam Vital Signs (Last) Date Time Temp Pulse Resp B/P Pulse Ox O2 Delivery O2 Flow Rate FiO2 04/27/17 10:41 64 04/27/17 08:20 36.7 18 156/72 95 Room Air 04/26/17 08:21 2.00 Test 04/24/17 21:15 04/24/17 23:59 04/25/17 01:50 04/25/17 13:00 Pro-B-Type Natriuretic Peptide 359.5pg/mL (0-738) Hold Sanchez Top Tube Received (Received) Urine Color Yellow (YELLOW) Urine Appearance Clear (CLEAR,HAZY) Urine pH 6.0 (5.0-8.0) Urine Specific [place] <1.005 (1.003-1.035) Urine Protein Negativemg/dL (NEG,TRACE) Urine Glucose (UA) Negativemg/dL (NEGATIVE) Urine Ketones Negativemg/dL (NEGATIVE) Urine Occult Blood Negative (NEGATIVE) Urine Nitrite Negative (NEGATIVE) Urine Bilirubin Negative (NEGATIVE) Urine Urobilinogen Normalmg/dL (NORMAL) Urine Leukocyte Esterase Small (NEGATIVE) Urine RBC 0-2/hpf (0-2) Urine WBC 0-5/hpf (0-5) Urine Epithelial Cells Few/hpf (NONE-MOD) Urine Crystals None seen (NONE SEEN) Urine Bacteria Few/hpf (NONE-FEW) Urine Hyaline Casts None/lpf (NONE) Urine Granular Casts None seen (NONE SEEN) Urine Waxy Casts None seen (NONE SEEN) Urine Red Blood Cell Casts None seen (NONE SEEN) Urine White Blood Cell Casts None seen (NONE SEEN) Urine Mucus None seen (None Seen) Urine Trichomonas None seen (NONE SEEN) Urine Yeast None (NONE SEEN) Urinalysis Comment None Urine Culture Reflexed Indicated Procalcitonin 0.29ng/mL (0.00-0.08) Troponin T < 0.010ug/L (0.0-0.011) Test 04/27/17 05:15 White Blood Count 7.4th/mm3 (3.8-10.1) Red Blood Count 3.55mil/mm3 (3.90-5.20) Hemoglobin 11.3g/dL (12.0-15.6) Hematocrit 32.7% (35.0-46.0) Mean Corpuscular Volume 92.1fL (81-100) Mean Corpuscular Hemoglobin 31.8pg (27.0-35.0) Mean Corpuscular Hemoglobin Concent 34.6% (32.0-37.0) Red Cell Distribution Width 16.9% (12.3-15.4) Platelet Count 246bil/L (150-400) Neutrophils (%) (Auto) 76.2% (40-74) Lymphocytes (%) (Auto) 12.4% (14-46) Monocytes (%) (Auto) 11.1% (4-12) Eosinophils (%) (Auto) 0.1% (0-5) Basophils (%) (Auto) 0.1% (0-3) Sodium Level 141mEq/L (134-144) Potassium Level 4.0mEq/L (3.5-5.2) Chloride Level 101mEq/L (97-108) Carbon Dioxide Level 24mmol/L (18-29) Blood Urea Nitrogen 24mg/dL (8-27) Creatinine 0.77mg/dL (0.57-1.00) Estimat Glomerular Filtration Rate 104mL/min (>59) Glucose Level 111mg/dL (60-99) Calcium Level 10.5mg/dL (8.5-10.1) Total Bilirubin 0.2mg/dL (0.0-1.2) Aspartate Amino Transf (AST/SGOT) 26U/L (0-50) Alanine Aminotransferase (ALT/SGPT) 24U/L (0-32) Alkaline Phosphatase 87U/L (25-165) Total Protein 6.7g/dL (6.4-8.4) Albumin 4.2g/dL (3.4-5.0) Discharge Medications Discharge Medications Carvedilol (Coreg) 25 Mg Tablet 25 MG PO BID Prescribed by: JESSICA MARTINEZ DO Cyclophosphamide (Cyclophosphamide) 50 Mg Capsule 100 MG PO DAILY (Reported) Escitalopram Oxalate (Escitalopram Oxalate) 10 Mg Tablet 10 MG PO DAILY ( Reported) Esomeprazole Magnesium (Nexium) 40 Mg Capsule.dr 40 MG PO DAILY (Reported) Esomeprazole Magnesium (Esomeprazole Magnesium) 40 Mg Capsule.dr 40 MG PO DAILY (Reported) Hydrochlorothiazide (Hydrochlorothiazide) 25 Mg Tablet 25 MG PO DAILY (Reported ) Meloxicam (Meloxicam) 15 Mg Tablet 15 MG PO DAILY (Reported) Ondansetron (Ondansetron) 8 Mg Tablet 8 MG PO q12 hours (Reported) Prednisone (Deltasone) 20 Mg Tablet 60 MG PO DAILY Prescribed by: EDUARD ZARATE MD As needed Acetaminophen (Acetaminophen) 325 Mg Tablet 1,300 MG PO Q8H PRN PRN For Pain ( Reported) Followup Plan Discharge Diet: Heart Healthy Discharge Activity: No restrictions Patient Instructions Need a repeat high resolution CT in 2 weeks. Follow-up Provider: Lesly Alexander Follow-up with PCP in: 1 week Provider: Juancho Yepez MD Follow-up in: 2 weeks Time spent 45mins Eduard Zarate MD Apr 27, 2017 11:11
[2017-04-27 12:43] VITALS: BP 110/75; PULSE 71; RESP 16; O2SAT 95
--- NOTE | 2017-04-27 15:34 | DRSVH ---
PROCEDURE: X-RAY CHEST, TWO VIEWS ([id number]) INDICATIONS: SHORT OF BREATH TECHNIQUE: 2 views of the chest were acquired. COMPARISON: [facility], CR, XR CHEST 1VW (PORTABLE), 04/24/2017, 21:10. FINDINGS: Surgical changes and devices: Left chest wall Port-A-Cath is stable in position. Lungs and pleura: No pleural effusions or pneumothorax. There is persistent mild pulmonary edema. No focal consolidation. Mild elevation of the right hemidiaphragm is redemonstrated. Mediastinum: Mediastinal contours are unchanged. Heart size is normal. Bones and chest wall: No suspicious bony abnormalities. Soft tissues appear unremarkable. IMPRESSION: 1. Persistent mild pulmonary edema. Dictated by: Jose Mendez M.D. on 04/27/2017 at 15:30 Approved by: Jose Mendez M.D. on 04/27/2017 at 15:32
--- NOTE | 2017-04-27 16:21 | NUR ---
Social Work- Initial Assessment/Multidisciplinary Rounds/Discharge Data: See Initial Assessment. Pt is a 76 year old female admitted 04/25/17 for acute, hypoxic respiratory failure per H&P. Per multidisciplinary rounds, pt is medically ready for discharge. Discharge orders are active. Pt's insurance is [employer] and [employer]. Pt's PCP is WILL Fatima. Pt's readmit risk score is 3 high risk. SW met with pt and at bedside regarding discharge plan, SW role explained. Pt alert and oriented x3. Pt's capacity for self care assessed. Pt resides in [place] in a split level home with her where she is independent at baseline. Pt uses no DME and continues to drive. Pt has no HH or SNF history. Pt reports she is able to navigate all steps without issue. Pt has LTC insurance through [employer] and no VA benefits. Pt's is her DPOA but pt does not have completed paperwork for [facility]. SW provided paperwork to patient at bedside. SW provided pt with Discharge Planning Checklist and instructed pt to call [facility] [employer] if needs are identified. SW provided phone number and plan on whiteboard. Pt to discharge home with to transport via POV. No concerns for pt's capacity for self-care are identified. No additional discharge needs identified. Assessment: Pt who is independent at baseline. Plan: Pt to discharge home with to transport via POV. No additional discharge needs identified. SOULEYMANE Gary Addendum: 04/27/17 at 1624 by ARNOLDO BURNS Amended: Links added.
--- NOTE | 2017-04-27 17:41 | NUR ---
Discharge Pt. was discharged to home and left at about 1705. Pt. took all her belongings from room 1027 [facility] and was given educational material on new prescription prednisone. She was also instructed to take it fo the next 3 days. Pt. was also instructed to call Lesly Alexander, phone number was provided. Also Pt. was instructed to call Milena Serrano MD and phone number was provided as well. Pt. stated "I will call tomorrow morning to start making an appointment." Left upper port was DC'D per [employer] and home medications where returned back to Pt. prior to leaving.
--- NOTE | 2017-04-27 22:25 | PROG NOTE ---
[address] [address] PROGRESS NOTE PATIENT: OSVALDO PERRY : 1940 MR#: [id number] ADMIT: 04/25/2017 JOB ID: [id number] PULMONARY PROGRESS NOTE: DATE: 04/27/2017 The patient is a 76-year-old woman with breast cancer on chemotherapy admitted with dyspnea and hypoxemia. INTERVAL HISTORY: She is feeling significantly better and almost back to baseline. She is no longer needing oxygen and her saturations are maintained in the 90s both at rest and with activity. REVIEW OF SYSTEMS: Denies fevers, chills, sweats, chest pain. PHYSICAL EXAMINATION: Vital signs reviewed. She is afebrile. Pulse 71, respirations 16, BP 110/75, and sats 95% to 97% on room air. General: Alert, oriented, sitting up in a chair, breathing comfortably. Chest is clear to auscultation. LABORATORIES: Reviewed. Procalcitonin is negative. Procalcitonin is intermediate at 0.29. IMAGING: Reviewed in detail. Chest x-ray 04/24/2017 is not very impressive with minimal patchy bilateral infiltrates that could be easily missed. April 24, 2017, chest CT, pulmonary angiogram shows no PE but bilateral upper lobe predominant ground-glass opacities. Differential would include infection, pneumonitis due to methotrexate. ASSESSMENT AND RECOMMENDATIONS: 1. Acute hypoxic respiratory failure-resolved. 2. Bilateral pulmonary infiltrates with ground-glass opacities. 3. Immunocompromised patient with chemotherapy for breast cancer-CM protocol, i.e. cyclophosphamide, methotrexate, 5 fluorouracil. This 76-year-old woman last received chemotherapy 10 days ago with above-mentioned regimen. Of most concern on this regimen would be the methotrexate which can cause pulmonary toxicity that looks like this. However, because of many weeks of ongoing chemotherapy, she would also be at risk for Pneumocystis. Initially, I considered a bronchoscopy, but since she has improved in just three days with simply 60 mg of p.o. prednisone, I think Pneumocystis or other opportunistic infection would be highly unlikely. I think, however, it would be too soon to repeat a CT scan at this point. I did ask her to come back and see me in clinic in a few weeks' time and we will repeat a CT scan prior to that visit to ensure resolution of infiltrates. I would recommend that she continue prednisone 60 mg daily for at least another week and then decrease to 40 mg for a couple of weeks, 20 mg for a couple of weeks, and then stop. I will see her back in followup prior to that time. I also explained to her that if she starts to get worse at any point, she should come back to the hospital right away. She is otherwise ready for discharge and was simply waiting for me to see her. Discussed with the hospitalist caring for the patient, Dr. Campo, as well.
== END 2017-04-27 17:05 | disposition home or self-care (01) | DRG 206 ==
LOC: SED 20:37 → OSC 04-25 00:30
PROVIDERS: ADMIT Specialist; ATTEND Specialist
DX: R09.02 Hypoxemia (principal); R06.09 Other forms of dyspnea; T45.1X5A Adverse effect of antineoplastic and immunosuppressive drugs, initial encounter; I10 Essential (primary) hypertension; E78.5 Hyperlipidemia, unspecified; K21.9 Gastro-esophageal reflux disease without esophagitis; Z85.3 Personal history of malignant neoplasm of breast; Z90.11 Acquired absence of right breast and nipple; F32.9 Major depressive disorder, single episode, unspecified